=== PATIENT | female | born 1990 | race Hispanic/Latino ===

== ENCOUNTER 2020-05-02 11:57 | Day surgery (SDC) | payer OTHER ==
[2020-05-02] MEDS ORDERED: hydrALAZINE 20 MG/ML VIAL SLOW IVP PRN (13:37)
[2020-05-02] MEDS ORDERED: Acetaminophen 500 MG TAB PO SCH (13:45)
[2020-05-02 14:02] LABS: #Monocytes 0.7 10x3/uL (0.0-1.1); #Neutrophils 7.2 10x3/uL (1.5-8.4); %Basophils 0.1 % (0.0-2.0); %Eosinophils 0.4 % (0.0-6.0); %Lymphocytes 16.1 % (18.0-47.0); %Monocytes 7.5 % (0.0-10.0); %Neutrophils 75.4 % (40.0-75.0); Hemoglobin 11.6 g/dL (12.0-15.5); Mean Corpuscular HGB CONC 33.3 g/dL (32.0-36.0); Mean Corpuscular Hemoglobin 30.2 pg (27.0-33.0); Mean Corpuscular Volume 90.6 fl (81.6-98.3); Mean Platelet Volume 10.6 fl (7.4-10.4); Platelet Count 195 10x3/uL (150-450); RBC Distribution Width 13.4 % (11.5-14.5); Red Blood Cell (RBC) Count 3.84 10x6/uL (3.90-5.03); White Blood Cell (WBC) Count 9.6 10x3/uL (3.5-10.5)
[2020-05-02 14:17] LABS: ALT (SGPT) 10 U/L (8-55); AST (SGOT) 10 U/L (5-34); Albumin 3.3 g/dL (3.5-5.0); Alkaline Phosphatase 121 U/L (40-110); Anion Gap 11 mmol/L (10-20); BUN (Urea Nitrogen) 7 mg/dL (7.0-18.7); Bilirubin, Total 0.3 mg/dL (0.2-1.2); Calc. Creatinine Clearance 0 mL/min (70-130); Calcium 9.2 mg/dL (7.8-10.44); Carbon Dioxide 24 mmol/L (22-29); Chloride 106 mmol/L (98-107); Glucose 88 mg/dL (70-105); Potassium 3.8 mmol/L (3.5-5.1); Protein, Total 6.3 g/dL (6.0-8.3); Sodium 137 mmol/L (136-145)
[2020-05-02 15:08] LABS: Creatinine, Urine 36.15 mg/dL (47-110); Protein, Urine Random Quant Less than 10 mg/dL (1-14)
== END 2020-05-02 15:20 | disposition home or self-care (01) ==
LOC: CSHLD/OP 11:57
PROVIDERS: ATTEND Obstetrics & Gynecology
DX: O99.891 Other specified diseases and conditions complicating pregnancy (principal); R03.0 Elevated blood-pressure reading, without diagnosis of hypertension; H53.8 Other visual disturbances; O99.513 Diseases of the respiratory system complicating pregnancy, third trimester; J45.909 Unspecified asthma, uncomplicated; Z3A.38 38 weeks gestation of pregnancy; Z88.8 Allergy status to other drugs, medicaments and biological substances
CPT/HCPCS: 36415; 80053; 82570; 84156; 85025; 99283

== ENCOUNTER 2020-05-19 08:00 | Inpatient (IN) | payer OTHER ==
[~2020-05-19 08:00] MED LIST: Bupivacaine 0.25% HCL 30 ML VIAL ONE
[2020-05-19] MEDS ORDERED: Butorphanol Tartrate 1 MG/ML VIAL SLOW IVP PRN (12:04)
[2020-05-19] MEDS ORDERED: Lidocaine 1% (PF) 30 ML VIAL SC PRN (12:04)
[2020-05-19] MEDS ORDERED: Promethazine HCl 25 MG/ML VIAL IM PRN ×2 (12:04→13:27)
[2020-05-19] MEDS ORDERED: hydrALAZINE 20 MG/ML VIAL SLOW IVP PRN ×2 (12:04→22:26)
[2020-05-19] MEDS ORDERED: Ondansetron PF 4 MG/2 ML Vial IVP PRN ×3 (12:04→22:26)
[2020-05-19] MEDS ORDERED: Ibuprofen 800 MG TAB PO PRN (12:04)
[2020-05-19] MEDS ORDERED: HYDROcodone/Acetaminophen 5/325 mg Tablet PO PRN ×4 (12:04→22:26)
[2020-05-19 12:27] LABS: Hemoglobin 13.1 g/dL (12.0-15.5); Mean Corpuscular Hemoglobin 30.3 pg (27.0-33.0); Mean Corpuscular Volume 89.1 fl (81.6-98.3); Mean Platelet Volume 11.5 fl (7.4-10.4); Platelet Count 197 10x3/uL (150-450); RBC Distribution Width 13.2 % (11.5-14.5); Red Blood Cell (RBC) Count 4.32 10x6/uL (3.90-5.03); White Blood Cell (WBC) Count 14.5 10x3/uL (3.5-10.5)
[2020-05-19] MEDS ORDERED: Fentanyl 4 mcg/Bup 0.1% Cadd 100 ML ONE (12:38)
[2020-05-19 12:42] VITALS: BMI 33.5
[2020-05-19] MEDS ORDERED: Acetaminophen 325 MG TAB PO PRN (13:27)
[2020-05-19] MEDS ORDERED: Lactated Ringer's 500 ML IV PRN (13:27)
[2020-05-19] MEDS ORDERED: Naloxone HCl 0.4 mg/ml Vial IVP PRN ×2 (13:27)
[2020-05-19] MEDS ORDERED: diphenhydrAMINE 50 MG/ML VIAL IVP PRN (13:27)
[2020-05-19] MEDS ORDERED: Communication Order-Pharmacy FS SCH (13:30)
[2020-05-19] MEDS ORDERED: Fentanyl 4 mcg/Bupivacaine 0.1% Cassette 100 ML EPIDURAL SCH (13:30)
[2020-05-19] MEDS ORDERED: ePHEDrine Sulfate 50 MG/10 ML VIAL SLOW IVP PRN (13:34)
[2020-05-19 13:37] LABS: Hep B Surf Ag Non-Reactive S/CO (NonReactive)
[2020-05-19 13:53] LABS: Syphilis Antibody Nonreactive (Nonreactive); Syphilis Antibody Index 0.04 S/CO (<1.00 Non-Reactive)
[2020-05-19 15:02] LABS: HBSAg Index 0.25 S/CO (0-0.99)
[2020-05-19] MEDS ORDERED: NS w/ Oxytocin 30 units 500 ML ONE ×2 (16:29→22:34)
[2020-05-19] MEDS: NS w/ Oxytocin 30 units 500 ML IVPB PRN ×2 (20:15→22:34)
[2020-05-19] MEDS: Lactated Ringer's 1,000 ML IV SCH ×2 (20:30→20:31)
[2020-05-19] MEDS ORDERED: Benzocaine-Menthol 82.5 ML CAN TOP PRN (22:26)
[2020-05-19] MEDS ORDERED: NS / Oxytocin 40 units/1000ml 1,000 ML IV SCH (22:26)
[2020-05-19] MEDS ORDERED: Bisacodyl 10 MG SUPP PR PRN (22:26)
[2020-05-19] MEDS ORDERED: Milk Of Magnesia 30 ML UDCUP PO PRN (22:26)
[2020-05-19] MEDS ORDERED: Misoprostol 200 MCG TAB VAG PRN (22:26)
[2020-05-19] MEDS ORDERED: Lanolin Ointment 7 GM TUBE TOP PRN (22:26)
[2020-05-19] MEDS: Ibuprofen 800 MG TAB PO SCH (23:52)
[2020-05-20 04:20] LABS: SARS-CoV-2 PCR by NAA Not Detected (NotDetected)
[2020-05-20] MEDS: Ferrous Sulfate 325 MG TAB PO SCH ×2 (07:42→17:42)
[2020-05-20] MEDS: Prenatal Vitamin 1 TAB PO SCH (08:21)
[2020-05-20] MEDS: Docusate Calcium (SURFAK) 240 MG CAP PO SCH ×2 (08:21→23:13)
[2020-05-20] MEDS: Ibuprofen 800 MG TAB PO SCH ×3 (08:21→23:13)
[2020-05-20] MEDS ORDERED: Adacel (T-DAP) 0.5 ML SYRINGE IM ONE (09:00)
[2020-05-20] MEDS ORDERED: Acetaminophen 500 MG TAB PO PRN (13:24)
[2020-05-21 08:13] VITALS: BP 117/70; TEMP 98.1
[2020-05-21] MEDS: Ferrous Sulfate 325 MG TAB PO SCH ×2 (09:06→17:10)
[2020-05-21] MEDS: Docusate Calcium (SURFAK) 240 MG CAP PO SCH (09:07)
[2020-05-21] MEDS: Prenatal Vitamin 1 TAB PO SCH (09:07)
[2020-05-21] MEDS: Ibuprofen 800 MG TAB PO SCH ×2 (09:14→18:22)
== END 2020-05-21 18:30 | disposition home or self-care (01) | DRG 807 ==
LOC: CSHLD 08:00 → CSHPP 22:45
PROVIDERS: ADMIT Obstetrics & Gynecology; ATTEND Obstetrics & Gynecology
PROC: 10E0XZZ Delivery of Products of Conception, External Approach (ICD-10-PCS; principal; 2020-05-19)
PROC: 4A0HXCZ Measurement of Products of Conception, Cardiac Rate, External Approach (ICD-10-PCS; 2020-05-19)
PROC: 0UQGXZZ Repair Vagina, External Approach (ICD-10-PCS; 2020-05-19)
DX: O99.214 Obesity complicating childbirth (principal); Z37.0 Single live birth; E66.9 Obesity, unspecified; Z3A.40 40 weeks gestation of pregnancy; O71.4 Obstetric high vaginal laceration alone
CPT/HCPCS: 51702; 85027; 86780; 86850; 86900; 86901; 87340; 87635; 99285; J2590; S0020; U0003; U0005